=== PATIENT | female | born 1995 ===

== ENCOUNTER → 2018-09-08 | Emergency (ER) | payer OTHER ==
[~2018-09-08] VITALS: Ht 165.1 cm; Wt 59.0 kg
[~2018-09-08] MED LIST: ADDERALL 10 MG10 MG PO; WELLBUTRIN SR100 MG PO
== END | disposition left against medical advice (07) ==
LOC: ER 13:21
DX: Z53.20 Procedure and treatment not carried out because of patient's decision for unspecified reasons (principal)